=== PATIENT | male | born 1965 | race Caucasian/White ===

== ENCOUNTER 2018-12-26 15:34 | Outpatient (CLI) | payer BC ==
--- NOTE | 2018-12-26 16:13 | Diagnostic Imaging Report ---
Indication: Right hand pain Findings: 3 views of the right hand were obtained. Normal bony mineralization and alignment are demonstrated. No acute fractures, erosions, or periosteal reaction are seen. Soft tissues are unremarkable. Impression: No acute findings.
== END 2018-12-26 17:34 | disposition home or self-care (01) ==
LOC: RAD 15:34
DX: M19.90 Unspecified osteoarthritis, unspecified site (principal); M25.541 Pain in joints of right hand